=== PATIENT | male | born 1950 | race Caucasian/White ===

== ENCOUNTER 2016-12-10 13:31 | Inpatient (IN) | payer OTHER, MEDICARE ==
--- NOTE | 2016-12-10 13:47 | PDOC ---
History of Present Illness - General History Source: Patient Exam Limitations: No Limitations - History of Present Illness Initial Comments: 12/10/16 14:02 The patient is a 66 year old male, with a significant past medical history of high cholesterol, afib on blood thinners, and HTN , who presents to the emergency department with fecal retention for a couple of months. The patient notes having intermittent episodes of constipation. He reports having a full stool bowel movement every 4-5 days with his last full bowel movement about 4 days ago. He describes most of his bowel movements as watery. Also notes a recetn 20 pound weight loss. He also arrives with complaints of SOB. He denies any blood in his stool. He denies any recent fevers, chills, headache or dizziness. He denies any recent nausea, vomit, diarrhea. He denies any recent chest pain. He denies any recent dysuria, frequency, urgency or hematuria. He denies any belching and denies any previous gastroenterology work up. Notes having a recent negative stress test. Allergies: NKA Past surgical history: None reported. Social History: Nonsmoker. Denies EtOH use and recreational drug use. <Ethan Braden - Last Filed: 12/10/16 14:52> <Cristy Beasley - Last Filed: 12/10/16 16:23> - General Stated Complaint: FECAL/URINARY RETENTION Time Seen by Provider: 12/10/16 13:40 Past History <Ethan Braden - Last Filed: 12/10/16 14:52> <Cristy Beasley - Last Filed: 12/10/16 16:23> - Past Medical History Allergies/Adverse Reactions: Allergies Allergy/AdvReac Type Severity Reaction Status Date / Time No Known Allergies Allergy Unverified 12/10/16 14:16 Review of Systems - Review of Systems Able to Perform ROS?: Yes Comments:: 12/10/16 14:02 GENERAL/CONSTITUTIONAL: No fever or chills. No weakness. HEAD, EYES, EARS, NOSE AND THROAT: No change in vision. No ear pain or discharge. No sore throat. GASTROINTESTINAL: No nausea, vomiting, diarrhea. GENITOURINARY: +fecal retention. No dysuria, frequency, or change in urination. CARDIOVASCULAR: No chest pain +shortness of breath. RESPIRATORY: No cough, wheezing, or hemoptysis. MUSCULOSKELETAL: No joint or muscle swelling or pain. No neck or back pain. SKIN: No rash NEUROLOGIC: No headache, vertigo, loss of consciousness, or change in strength/ sensation. ENDOCRINE: No increased thirst. No abnormal weight change. HEMATOLOGIC/LYMPHATIC: No anemia, easy bleeding, or history of blood clots. ALLERGIC/IMMUNOLOGIC: No hives or skin allergy. <Ethan Braden - Last Filed: 12/10/16 14:52> *Physical Exam - Physical Exam Comments: 12/10/16 14:08 Constitutional: Awake, alert, oriented. No acute distress. Head: Normocephalic. Atraumatic Eyes: PERRL. EOMI. Conjunctivae are not pale. ENT: Mucous membranes are moist and intact. Posterior pharynx without exudates or erythema. Uvula midline. Neck: Supple. Full ROM. No lymphadenopathy. Cardiovascular: Regular rate. Regular rhythm. S1, S2 regular. Distal pulses are 2+ and symmetric. Pulmonary/Chest: No evidence of respiratory distress. Clear to auscultation bilaterally No wheezing, rales or rhonchi. Rectal: Vault empty with some stool that is liquid like. Abdominal: Soft and non-distended. There is diffuse tenderness. No rebound, guarding or rigidity. No organomegaly. No palpable masses. Good bowel sounds. Back: No CVA tenderness. Musculoskeletal: No edema. No cyanosis. No clubbing. Full range of motion in all extremities. No calf tenderness. Radial/pedal pulses are intact and 2+ bilaterally Skin: Skin is warm and dry. No petechiae. No purpura. Neurological: Alert and oriented to person, place, and time. Cranial nerves II -XII are grossly intact. Normal speech. Strength is grossly symmetric. No sensory deficits. Psychiatric: Good eye contact. Normal interaction, affect and behavior. <Ethan Braden - Last Filed: 12/10/16 14:52> Heart Score/ECG Review - ECG Intrepretation Comment:: 12/10/16 14:49 afib at 112, nl axis, nl interval, no acute st/t wave findings <Cristy Beasley - Last Filed: 12/10/16 16:23> ED Treatment Course - LABORATORY CBC & Chemistry Diagram: 12/10/16 14:40 12/10/16 14:39 <Ethan Braden - Last Filed: 12/10/16 14:52> - LABORATORY CBC & Chemistry Diagram: 12/10/16 14:40 12/10/16 14:39 <Cristy Beasley - Last Filed: 12/10/16 16:23> Medical Decision Making - Critical Care Time Total Critical Care Time (minutes): 30 Critical Care Statement: The care of this patient involved high complexity decision making to prevent further life threatening deterioration of the patient 's condition and/or to evaluate & treat vital organ system(s) failure or risk of failure. - Medical Decision Making 12/10/16 14:47 a/p: 66yo male with episodes of constipation and diarrhea x 2 month, now with SOB -labs -rectal vault negative for impaction -diffuse abd pain, will obtain ct abd/pelvis -ekg -cxr -trop -ivf hydration -concern for wt loss and intermittent episodes of constipation for colonic pathology -follows with Dr. Micheal Dukes - will place call to obtain further pmhx. 12/10/16 14:[address] Dukes, hx of chronic afib, recent nuclear stress. call back with results. 12/10/16 15:37 pt with INR of 13.[address] Dukes, accepts pt to admission, will transfuse FFP and vitamin K 12/10/16 15:51 pt states he only follows with DR. Chakraborty, no longer sees dr. abbott <Cristy Beasley - Last Filed: 12/10/16 16:23> *DC/Admit/Observation/Transfer - Attestations Scribe Attestion: 12/10/16 14:02 Documentation prepared by Ethan Braden, acting as medical cost consultant for Cristy Beasley DO. <Ethan Braden - Last Filed: 12/10/16 14:52> - Discharge Dispostion Admit: Yes - Attestations Physician Attestion: 12/10/16 15:41 I, Dr. Cristy Beasley DO, attest that this document has been prepared under my direction and personally reviewed by me in its entirety. I further attest, that it accurately reflects all work, treatment, procedures and medical decision -making performed by me. <Cristy Beasley - Last Filed: 12/10/16 16:23> Diagnosis at time of Disposition: GI bleed, Bleeding on Coumadin, ANDREY (acute kidney injury) - Discharge Dispostion Condition at time of disposition: Guarded - Referrals Referrals: Renan Abbott MD [Primary Care Provider] -
[2016-12-10 15:17] LABS: ACTIVATED PTT 97.9 SECONDS (26.9-34.4); PROTHROMBIN TIME (PATIENT) 149.6 SEC (9.98-11.88)
[2016-12-10 15:18] LABS: INR 13.24 (0.82-1.09)
[2016-12-10 15:21] LABS: BASOPHIL 0.1 % (0-2.0); MCH 32.7 pg (25.7-33.7); MEAN PLT VOLUME 8.7 fl (7.5-11.1); NEUTROPHILS 85.7 % (42.8-82.8); PLATELET COUNT 328 K/MM3 (134-434); WHITE BLOOD COUNT 14.1 K/mm3 (4.0-10.0)
[2016-12-10 15:34] LABS: ALBUMIN 3.5 g/dl (3.4-5.0); ANION GAP 16 (8-16); BILIRUBIN,TOTAL 0.9 mg/dL (0.2-1.0); CALCIUM 8.6 mg/dL (8.5-10.1); CO2 25 mmol/L (21-32); CPK 117 IU/L (39-308); CREATININE 1.7 mg/dL (0.7-1.3); GLUCOSE,RANDOM 163 mg/dL (74-106); SGOT/AST 19 U/L (15-37); SGPT/ALT 18 U/L (12-78); TOT PROT 7.1 g/dl (6.4-8.2)
[2016-12-10 15:36] LABS: ALK PHOS 43 U/L (45-117)
[2016-12-10] MEDS ORDERED: PHYTONADIONE 10 MG/1 ML AMP IM ONE (15:38)
[2016-12-10] MEDS ORDERED: PANTOPRAZOLE SODIUM 40 MG VIAL IVPUSH ONE (15:41)
[2016-12-10 15:43] LABS: TROPONIN I < 0.02 ng/ml (0.00-0.05)
[2016-12-10] MEDS ORDERED: SODIUM CHLORIDE 0.9% 1000 ML INFUS.BAG IV ONE ×2 (15:43)
[2016-12-10] MEDS ORDERED: PANTOPRAZOLE SODIUM 100 ML IVPB ONE (16:00)
[2016-12-10] MEDS ORDERED: PHYTONADIONE 10 MG/1 ML AMP ONE (16:00)
--- NOTE | 2016-12-10 17:18 | EKG ---
Test Reason : Blood Pressure : / mmHG Vent. Rate : 112 BPM Atrial Rate : 122 BPM P-R Int : 000 ms QRS Dur : 074 ms QT Int : 294 ms P-R-T Axes : 000 057 004 degrees QTc Int : 401 ms POOR DATA QUALITY, INTERPRETATION MAY BE ADVERSELY AFFECTED ATRIAL FIBRILLATION WITH RAPID VENTRICULAR RESPONSE ABNORMAL ECG NO PREVIOUS ECGS AVAILABLE Confirmed by NICK GOLD MD ([id number]) on 12/10/2016 5:17:42 PM Referred By: Confirmed By:NICK GOLD MD
--- NOTE | 2016-12-10 18:49 | PDOC ---
*Physical Exam - Vital Signs Last Vital Signs Temp Pulse Resp BP Pulse Ox 95.0 F L 118 H 20 114/76 100 12/10/16 14:14 12/10/16 14:14 12/10/16 14:14 12/10/16 14:14 12/10/16 14:14 <Shoaib Vance - Last Filed: 12/10/16 18:48> - Vital Signs Last Vital Signs Temp Pulse Resp BP Pulse Ox 95.0 F L 118 H 20 114/76 100 12/10/16 14:14 12/10/16 14:14 12/10/16 14:14 12/10/16 14:14 12/10/16 14:14 <Sosa Ruth - Last Filed: 12/10/16 18:59> ED Treatment Course - LABORATORY CBC & Chemistry Diagram: 12/10/16 14:40 12/10/16 14:39 - ADDITIONAL ORDERS Additional order review: Laboratory Results 12/10/16 12/10/16 12/10/16 14:40 14:39 14:39 PT with INR 149.60 H INR 13.24 H* PTT (Actin FS) 97.9 H Sodium 134 L Potassium 4.5 Chloride 93 L Carbon Dioxide 25 Anion Gap 16 BUN 31 H Creatinine 1.7 H Creat Clearance w eGFR 40.53 Random Glucose 163 H Calcium 8.6 Magnesium 2.0 Total Bilirubin 0.9 AST 19 ALT 18 Alkaline Phosphatase 43 L Creatine Kinase 117 Troponin I < 0.02 B-Natriuretic Peptide Cancelled 3244 H Total Protein 7.1 Albumin 3.5 Lipase 79 Stool Occult Blood 12/10/16 14:04 PT with INR INR PTT (Actin FS) Sodium Potassium Chloride Carbon Dioxide Anion Gap BUN Creatinine Creat Clearance w eGFR Random Glucose Calcium Magnesium Total Bilirubin AST ALT Alkaline Phosphatase Creatine Kinase Troponin I B-Natriuretic Peptide Total Protein Albumin Lipase Stool Occult Blood Positive 12/10/16 14:40 RBC 3.30 L MCV 96.0 MCHC 34.0 RDW 13.0 MPV 8.7 Neutrophils % 85.7 H Lymphocytes % 7.5 L Monocytes % 6.7 Eosinophils % 0.0 Basophils % 0.1 - Medications Given in the ED: ED Medications Discontinued Medications Generic Name Dose Route Start Last Admin Trade Name Freq PRN Reason Stop Dose Admin Pantoprazole Sodium 40 mg 12/10/16 15:41 12/10/16 16:09 Protonix Iv IVPUSH 12/10/16 15:42 40 mg ONCE ONE Administration Phytonadione 5 mg 12/10/16 15:38 12/10/16 16:00 Aqua Mephyton Injection - IM 12/10/16 15:39 5 mg ONCE ONE Administration Sodium Chloride 1,000 ml 12/10/16 15:43 12/10/16 16:09 Normal Saline - IV 12/10/16 15:44 1,000 ml ONCE ONE Administration Sodium Chloride 1,000 ml 12/10/16 15:43 12/10/16 18:16 Normal Saline - IV 12/10/16 15:44 1,000 ml ONCE ONE Administration <GabrinShoaib - Last Filed: 12/10/16 18:48> - LABORATORY CBC & Chemistry Diagram: 12/10/16 14:40 12/10/16 14:39 - ADDITIONAL ORDERS Additional order review: Laboratory Results 12/10/16 12/10/16 12/10/16 14:40 14:39 14:39 PT with INR 149.60 H INR 13.24 H* PTT (Actin FS) 97.9 H Sodium 134 L Potassium 4.5 Chloride 93 L Carbon Dioxide 25 Anion Gap 16 BUN 31 H Creatinine 1.7 H Creat Clearance w eGFR 40.53 Random Glucose 163 H Calcium 8.6 Magnesium 2.0 Total Bilirubin 0.9 AST 19 ALT 18 Alkaline Phosphatase 43 L Creatine Kinase 117 Troponin I < 0.02 B-Natriuretic Peptide Cancelled 3244 H Total Protein 7.1 Albumin 3.5 Lipase 79 Stool Occult Blood 12/10/16 14:04 PT with INR INR PTT (Actin FS) Sodium Potassium Chloride Carbon Dioxide Anion Gap BUN Creatinine Creat Clearance w eGFR Random Glucose Calcium Magnesium Total Bilirubin AST ALT Alkaline Phosphatase Creatine Kinase Troponin I B-Natriuretic Peptide Total Protein Albumin Lipase Stool Occult Blood Positive 12/10/16 14:40 RBC 3.30 L MCV 96.0 MCHC 34.0 RDW 13.0 MPV 8.7 Neutrophils % 85.7 H Lymphocytes % 7.5 L Monocytes % 6.7 Eosinophils % 0.0 Basophils % 0.1 - Medications Given in the ED: ED Medications Discontinued Medications Generic Name Dose Route Start Last Admin Trade Name Freq PRN Reason Stop Dose Admin Pantoprazole Sodium 40 mg 12/10/16 15:41 12/10/16 16:09 Protonix Iv IVPUSH 12/10/16 15:42 40 mg ONCE ONE Administration Phytonadione 5 mg 12/10/16 15:38 12/10/16 16:00 Aqua Mephyton Injection - IM 12/10/16 15:39 5 mg ONCE ONE Administration Sodium Chloride 1,000 ml 12/10/16 15:43 12/10/16 16:09 Normal Saline - IV 12/10/16 15:44 1,000 ml ONCE ONE Administration Sodium Chloride 1,000 ml 12/10/16 15:43 12/10/16 18:16 Normal Saline - IV 12/10/16 15:44 1,000 ml ONCE ONE Administration <Sosa Ruth - Last Filed: 12/10/16 18:59> Medical Decision Making - Medical Decision Making 12/10/16 18:59 Mylene will see the patient in the next hour in the ED. Aware of malignancy and complex fluid in the Abdominal CT. Admission changed to [facility]. <Sosa Ruth - Last Filed: 12/10/16 18:59> *DC/Admit/Observation/Transfer - Attestations Physician Attestion: 12/10/16 18:49 I, Dr. Shoaib Vance, attest that this document has been prepared under my direction and personally reviewed by me in its entirety. I further attest, that it accurately reflects all work, treatment, procedures and medical decision -making performed by me. <Shoaib Vance - Last Filed: 12/10/16 18:48> <Sosa Ruth - Last Filed: 12/10/16 18:59> Diagnosis at time of Disposition: GI bleed, Bleeding on Coumadin, ANDREY (acute kidney injury) - Discharge Dispostion Condition at time of disposition: Guarded
--- NOTE | 2016-12-10 19:47 | CONSULT ---
Consult - text type - Consultation Consultation Note: H&P 66 year old male, with a significant past medical history of high cholesterol, afib on A/C, and HTN , who presents to the emergency department with fecal retention for a couple of months. The patient notes having intermittent episodes of constipation. He reports having a full stool bowel movement every 4- 5 days with his last full bowel movement about 4 days ago. He describes most of his bowel movements as watery. Also notes a 20 pound weight loss. Allergies: NKA Past surgical history: None reported. Social History: Nonsmoker. Denies EtOH use and recreational drug use. PMH afib,HTN PE: vitals stable normal cardio-pulmonary exam abdomen soft no leg edema Impression: chronic afib; stablefrom cardiac standpoint; INR 13, no bleed apparently; received FFP and Vit K abdominal symptoms cecum and recto-sigmoid thickening, abdomino-pelvic fluid; workup to be Rec: GI consult
[2016-12-11 10:05] LABS: BASOPHIL 0.3 % (0-2.0); EOSINOPHIL 0.8 % (0-4.5); MCH 33.6 pg (25.7-33.7); MCHC 35.4 g/dl (32.0-35.9); MEAN CELL VOLUME 95.1 fl (80-96); MEAN PLT VOLUME 7.9 fl (7.5-11.1); NEUTROPHILS 76.3 % (42.8-82.8); PLATELET COUNT 245 K/MM3 (134-434); RDW 12.8 % (11.9-15.9); WHITE BLOOD COUNT 6.5 K/mm3 (4.0-10.0)
[2016-12-11 11:16] VITALS: BMI 22.4
[2016-12-11] MEDS ORDERED: INSULIN (NOVOLOG) ASPART 100 UNITS/ML 10ML VIAL ONE (11:53)
[2016-12-11] MEDS ORDERED: PNEUMOC 13-VAL CONJ-DIP CRM/PF 0.5 ML DISP.SYRIN IM ONE (17:00)
[2016-12-11 17:16] LABS: INR 2.97 (0.82-1.09); PROTHROMBIN TIME (PATIENT) 33.6 SEC (9.98-11.88)
[2016-12-11 17:35] LABS: ANION GAP 6 (8-16); CALCIUM 8.4 mg/dL (8.5-10.1); CO2 32 mmol/L (21-32); CREATININE 1.2 mg/dL (0.7-1.3); GLUCOSE,RANDOM 130 mg/dL (74-106); MAGNESIUM 2.2 mg/dL (1.8-2.4)
[2016-12-11] MEDS ORDERED: dilTIAZem HCL 50 MG/10 ML - 10 ML VIAL ONE (18:07)
--- NOTE | 2016-12-11 18:14 | CONSULT ---
Consult - text type - Consultation Consultation Note: Cardiology mild abdominal discomfort, no other symptoms PE: HR 140 BP 110/80 tachycardia lungs clear abdomen soft no leg edema Impression: afib RVR INR 13, being reversed abdominal fluid and intestinal thickening: ? hemoperitoneum K 3.2 H/H 8/ dilutional and chronic Rec: GI and surgery consult cardizdem IV and PO to control HR replace K
[2016-12-11] MEDS ORDERED: dilTIAZem HCL 50 MG/10 ML - 10 ML VIAL IVPUSH ONE (18:16)
[2016-12-11] MEDS: dilTIAZem HCL 30 MG TABLET (FP) PO SCH (19:03)
[2016-12-11] MEDS: POTASSIUM CHLORIDE TABS 20 MEQ TABLET.ER (FP) PO SCH (19:03)
--- NOTE | 2016-12-11 19:03 | CON.GI ---
Consult Consult Specialty:: GI: Dr. Farias for Dr. Morrison Referred by:: Dr. Jacobs Reason for Consultation:: Diarrhea, abnormal CT scan - History of Present Illness Chief Complaint: I had diarrhea and pain in my belly for 2-3 months History of Present Illness: 66M admitted through [facility] for evaluation of persistent diarrhea. Mr. Gonzales explains to me that he has been having 2-3 watery BM's per day over the last 2- 3 months. He denies associated fevers/chills/rectal bleeding and has lost 15- 20 pounds over the last month. His appetite has also been diminished of late. He denies nightsweats and does recall the diarrhea waking him up at times. He tried taking Imodium and peptobismol without relief of his symptoms and did not seek medical attention because "he had a similar episode 6-7 years ago that went away with OTC stuff". Since things did not seem to improve, he sought medical attention now. He was admitted last night. Called tonight for consult. In ER last night CT scan of the abdomen revealed thickening of the small bowel (ileum) associated with complex fluid that was concerning for possible hemoperitoneum and surgery was called by Mr. Gonzales' nurse. His INR was 13 on admission, Hgb was 10.5 last night (currently 8.5) There has been no melena. He may have had a colonoscopy remotely but is not sure. There is no family history of lymphoma / [id number] cancer. 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 - Alcohol/Substance Use Hx Alcohol Use: Yes (used to drink a lot but cut down to 1-2 cans of beer x2/ month.) History of Substance Use: reports: None - Smoking History Smoking history: Current every day smoker Have you smoked in the past 12 months: Yes Aproximately how many cigarettes per day: 20 - Social History Usual Living Arrangement: Alone ADL: Independent Occupation: Semi-retired Place of : [employer] [facility] History of Recent Travel: No Home Medications - Allergies Allergies/Adverse Reactions: Allergies Allergy/AdvReac Type Severity Reaction Status Date / Time No Known Allergies Allergy Unverified 12/10/16 14:16 - Home Medications Home Medications: Ambulatory Orders Atenolol [Tenormin -] 100 mg PO DAILY 12/11/16 Chlorthalidone [Hygroton -] 25 mg PO DAILY 12/11/16 Diltiazem [Cardizem -] 30 mg PO BID 12/11/16 Fenofibrate 60 mg PO DAILY 12/11/16 Simvastatin 20 mg PO DAILY 12/11/16 Warfarin Sodium [Coumadin] 5 mg PO DAILY 12/11/16 Family Disease History - Family Disease History Family Disease History: Other: Father (alive: 89: healthy), Mother ( 75: pancreatic cancer), Brother (2, healthy), Sister (1, healthy) Other Family History: No children Review of Systems - Review of Systems Constitutional: reports: Loss of Appetite, Unintentional Wgt. Loss, Weakness. denies: Chills Cardiovascular: reports: Palpitations. denies: Chest Pain, Shortness of Breath Respiratory: denies: Cough Gastrointestinal: reports: Abdominal Pain, Diarrhea. denies: Bloating, Constipation, Melena, Rectal Bleeding, Vomiting, Vomiting Blood Integumentary: denies: Bruising Physical Exam-GI Vital Signs: Vital Signs Temperature 98.1 F 12/11/16 15:03 Pulse Rate 112 H 12/11/16 16:30 Respiratory Rate 22 12/11/16 16:30 Blood Pressure 92/57 12/11/16 16:30 O2 Sat by Pulse Oximetry (%) 100 12/11/16 10:44 Constitutional: Yes: Calm Eyes: No: Sclera Icterus Cardiovascular: Yes: Tachycardia, Pulse Irregular Respiratory: Yes: CTA Bilaterally Gastrointestinal Inspection: No: Distention, Scars ...Auscultate: Yes: Normoactive Bowel Sounds ...Palpate: Yes: Soft, Tenderness, Tenderness, Rebound (mild rebound upon palpation of the mid abdomen). No: Hepatomegaly ...Percussion: No: Tympanitic ...Rectal Exam: Yes: Other (No external lesions, no masses, light brown liquid stool, guaiac positive) Edema: No Neurological: Yes: Alert, Oriented Labs: CBC, BMP 12/11/16 09:30 12/11/16 16:00 INR, PTT INR 2.97 (0.82-1.09) H D 12/11/16 16:00 Imaging - Results Cat Scan: Report Reviewed, Image Reviewed Problem List - Problems (1) Diarrhea Assessment/Plan: With CT scan findings and chronicity of symptoms along with weight loss, possibilities would include small bowel crohn's disease, malignancy of the intestinal tract such as lymphoma. It would be strange for infectious enteritis to linger this long and this would be an atypical presentation for small bowel ischemia. The free fluid in the peritoneum was described as complex and raising concern for component of hemoperitoneum. ? if smal;l bowel pathology spontanrously bled Dr. Gambino is evaluating Mr. Gonzales currently. Plan for now: Stool for O&P, culture, c. diff Will need contrast imaging study / CT enterography when renal function permits Clear liquid diet for now Reverse coagulopathy Monitor H/H Surgical follow-up Consider ID evaluation When acute issues are resolved and when feasible, patient will need colonoscopy for further evaluation / possible push enterpscopy Dr. Morrison returns Thursday 12/14 Code(s): R19.7 - DIARRHEA, UNSPECIFIED
--- NOTE | 2016-12-11 19:42 | PN ---
Progress Note (short form) - Note Progress Note: Reviewed CT scan along with Dr. Gambino. There appears to be mass effect at the area of the splenic flexure / descending colon with ? extrinsic compression. there also appears to be blood tracking along spleen and liver. ? if stromal tumor that bled in setting of supratherapeutic INR Patient may need diagnostic laparoscopy Will continue to monitor Contrast imaging when renal function permits Problem List - Problems (1) Diarrhea Code(s): R19.7 - DIARRHEA, UNSPECIFIED
--- NOTE | 2016-12-11 19:44 | PN ---
Progress Note, Physician History of Present Illness: 66 yr old male presents with several month history of lower abdominal pain, diarrhea and 15-20 lb weight loss He reports significant discomfort waering a belt. Denies any nausea or vomiting. He has a History of HTn, Hypercholesterolemia and Afib for which he is anticoagulated on Coumadin. - Current Medication List Current Medications: Active Medications Diltiazem HCl (Cardizem -) 30 mg PO TID [facility] Last Admin: 12/11/16 19:03 Dose: 30 mg Potassium Chloride (K-Dur -) 20 meq PO BID [facility] Last Admin: 12/11/16 19:03 Dose: 20 meq - Objective Vital Signs: Vital Signs Temperature 98.1 F 12/11/16 15:03 Pulse Rate 112 H 12/11/16 18:00 Respiratory Rate 22 12/11/16 18:00 Blood Pressure 109/72 12/11/16 18:00 O2 Sat by Pulse Oximetry (%) 100 12/11/16 10:44 Labs: CBC, BMP 12/11/16 09:30 12/11/16 16:00 INR, PTT INR 2.97 (0.82-1.09) H D 12/11/16 16:00 - ....Imaging Cat Scan: Report Reviewed, Image Reviewed Problem List - Problems (1) Bleeding on Coumadin Code(s): R58 - HEMORRHAGE, NOT ELSEWHERE CLASSIFIED T45.515A - ADVERSE EFFECT OF ANTICOAGULANTS, INITIAL ENCOUNTER (2) Diarrhea Code(s): R19.7 - DIARRHEA, UNSPECIFIED Assessment/Plan 66 yr old male with Abdominal pain, diarrhea and [address] Shows thickened loops of jejunum , terminal ileum and Spleenic flexure. There is suggestion of fluid aronud the spleen and liver. No acute need for surgical intervention at this time, however, diagnostic laparoscopy may be helpful once other diagnostic modalities are exhausted. Repeat Ct scan with Iv and oral contrast once creatine normalizes
[2016-12-11 20:45] LABS: MCH 33.2 pg (25.7-33.7); MCHC 34.8 g/dl (32.0-35.9); MEAN CELL VOLUME 95.6 fl (80-96); MEAN PLT VOLUME 8.1 fl (7.5-11.1); PLATELET COUNT 244 K/MM3 (134-434); RDW 12.7 % (11.9-15.9); WHITE BLOOD COUNT 7.3 K/mm3 (4.0-10.0)
[2016-12-12] MEDS ORDERED: PT OWN MED DRAWER 7, Y5N ONE (01:17)
[2016-12-12] MEDS: dilTIAZem HCL 30 MG TABLET (FP) PO SCH ×3 (06:00→22:10)
[2016-12-12] MEDS ORDERED: DIGOXIN 0.25 MG TABLET (FP) PO ONE (06:15)
[2016-12-12 06:19] LABS: BASOPHIL 0.6 % (0-2.0); EOSINOPHIL 1.8 % (0-4.5); MCH 33.3 pg (25.7-33.7); MCHC 34.7 g/dl (32.0-35.9); MEAN CELL VOLUME 95.9 fl (80-96); MEAN PLT VOLUME 8.5 fl (7.5-11.1); PLATELET COUNT 240 K/MM3 (134-434); RDW 12.5 % (11.9-15.9); WHITE BLOOD COUNT 5.7 K/mm3 (4.0-10.0)
[2016-12-12 06:32] LABS: ANION GAP 7 (8-16); CALCIUM 8.3 mg/dL (8.5-10.1); CO2 31 mmol/L (21-32); CREATININE 1.1 mg/dL (0.7-1.3); GLUCOSE,RANDOM 95 mg/dL (74-106); MAGNESIUM 1.9 mg/dL (1.8-2.4); PHOSPHOROUS 2.4 mg/dL (2.5-4.9)
[2016-12-12] MEDS ORDERED: dilTIAZem HCL 30 MG TABLET (FP) PO ONE (09:00)
[2016-12-12] MEDS: POTASSIUM CHLORIDE TABS 20 MEQ TABLET.ER (FP) PO SCH ×2 (09:28→22:10)
--- NOTE | 2016-12-12 09:35 | EKG ---
Test Reason : Blood Pressure : / mmHG Vent. Rate : 100 BPM Atrial Rate : 288 BPM P-R Int : 000 ms QRS Dur : 076 ms QT Int : 356 ms P-R-T Axes : 000 069 030 degrees QTc Int : 459 ms ATRIAL FIBRILLATION NONSPECIFIC T WAVE ABNORMALITY ABNORMAL ECG WHEN COMPARED WITH ECG OF 10-DEC-2016 14:47, NONSPECIFIC T WAVE ABNORMALITY NOW EVIDENT IN LATERAL LEADS Confirmed by HILARIO PRINCE, GINA ([id number]) on 12/12/2016 9:34:34 AM Referred By: Confirmed By:GINA RICH MD
[2016-12-12] MEDS: FENOFIBRIC ACID 45 MG CAP PO SCH (10:51)
[2016-12-12] MEDS: CHLORTHALIDONE 25 MG TABLET PO SCH (10:51)
--- NOTE | 2016-12-12 12:33 | CONSULT ---
Consult - text type - Consultation Consultation Note: Cardiology mild abdominal discomfort, no other symptoms PE: HR 100-110 BP 110/80 tachycardia lungs clear abdomen soft no leg edema Impression: afib RVR; almost controlled INR 13 to 2.6 abdominal fluid and intestinal thickening: ? hemoperitoneum K 3.2 to 3.4 H/H 8/ dilutional and chronic renal function almost normal GI and surgery: There appears to be mass effect at the area of the splenic flexure / descending colon with ? extrinsic compression. there also appears to be blood tracking along spleen and liver. ? if stromal tumor that bled in setting of supratherapeutic INR Patient may need diagnostic laparoscopy Patient is cleared from medical and cardiac standpoint to undergo laparaoscopy; INR 2.6 can be normalized before surgery Rec: diagnostic imaging if needed, with creatinine almost normal
[2016-12-12] MEDS: ATENOLOL 50 MG TABLET (FP) PO SCH (12:43)
--- NOTE | 2016-12-12 14:34 | PN ---
Progress Note, Physician History of Present Illness: reports mild abdominal pain, tolerating clears - Current Medication List Current Medications: Active Medications Atenolol (Tenormin -) 50 mg PO DAILY [facility] Last Admin: 12/12/16 12:43 Dose: 50 mg Atorvastatin Calcium (Lipitor -) 10 mg PO HS [facility] Chlorthalidone (Hygroton -) 25 mg PO DAILY [facility] Last Admin: 12/12/16 10:51 Dose: 25 mg Digoxin (Lanoxin -) 0.25 mg PO DAILY [facility] Diltiazem HCl (Cardizem -) 30 mg PO TID [facility] Last Admin: 12/12/16 13:25 Dose: 30 mg Fenofibric Acid (Trilipix -) 45 mg PO DAILY [facility] Last Admin: 12/12/16 10:51 Dose: 45 mg Potassium Chloride (K-Dur -) 20 meq PO BID [facility] Last Admin: 12/12/16 09:28 Dose: 20 meq - Objective Vital Signs: Vital Signs Temperature 98.2 F 12/12/16 07:25 Pulse Rate 88 12/12/16 12:18 Respiratory Rate 18 12/12/16 12:18 Blood Pressure 114/68 12/12/16 12:18 O2 Sat by Pulse Oximetry (%) 98 12/12/16 07:46 Labs: CBC, BMP 12/12/16 05:05 12/12/16 05:05 INR, PTT INR 2.97 (0.82-1.09) H D 12/11/16 16:00 Problem List - Problems (1) Bleeding on Coumadin Code(s): R58 - HEMORRHAGE, NOT ELSEWHERE CLASSIFIED T45.515A - ADVERSE EFFECT OF ANTICOAGULANTS, INITIAL ENCOUNTER (2) Diarrhea Code(s): R19.7 - DIARRHEA, UNSPECIFIED Assessment/Plan HCT stable Cr HAS NORMALIZED, INR has improved Will order repeat Ct scan with IV and PO contrast
[2016-12-12] MEDS: DIGOXIN 0.25 MG TABLET (FP) PO SCH (17:22)
--- NOTE | 2016-12-12 18:21 | PN ---
GI Progress Note Subjective: No acute events States that diarrhea is improved: 1 formed BM today and dark BM noted overnight - Objective Vital Signs: Vital Signs Temperature 98 F 12/12/16 16:13 Pulse Rate 78 12/12/16 17:22 Respiratory Rate 18 12/12/16 16:13 Blood Pressure 105/67 12/12/16 16:13 O2 Sat by Pulse Oximetry (%) 98 12/12/16 07:46 Constitutional: Calm Eyes: No: Sclera Icterus Cardiovascular: Yes: Regular Rate and Rhythm, Pulse Irregular Respiratory: Yes: CTA Bilaterally Gastrointestinal Inspection: No: Distention ...Auscultate: Yes: Normoactive Bowel Sounds ...Palpate: No: Tenderness Edema: No Neurological: Yes: Alert, Oriented Labs: CBC, BMP 12/12/16 05:05 12/12/16 05:05 INR, PTT INR 2.97 (0.82-1.09) H D 12/11/16 16:00 - ....Imaging Cat Scan: Report Reviewed (persistent bowel wall thickening mid/left abdomen), Image Reviewed Problem List - Problems (1) Diarrhea Assessment/Plan: Improved Still with thickening of the small bowel noted on CT scan. Hemoperitoneum not described on this CT scan read Given chronicity of symptoms and weight loss as well as with heme positive stools (in setting of supratherapeutic INR), still concern for possible GI malignancy in differential. Seems to be tolerating clears Discussed with Dr. Gambino. No plan for the OR at this time. Will need coagulopathy corrected and electrolytes repleted. Asked nurse to let PMD be aware of this Plan for possible enteroscopy and colonoscopy Continue clears for now Code(s): R19.7 - DIARRHEA, UNSPECIFIED
[2016-12-12] MEDS: PANTOPRAZOLE 40 MG TABLET (FP) PO SCH (22:11)
[2016-12-12] MEDS: ATORVASTATIN CA 10 MG TABLET (FP) PO SCH (22:11)
[2016-12-13] MEDS: dilTIAZem HCL 30 MG TABLET (FP) PO SCH ×3 (06:35→22:21)
[2016-12-13] MEDS ORDERED: PT OWN MED DRAWER 7, Y5N ONE (09:01)
[2016-12-13] MEDS: FENOFIBRIC ACID 45 MG CAP PO SCH (09:21)
[2016-12-13] MEDS: ATENOLOL 50 MG TABLET (FP) PO SCH (09:21)
[2016-12-13] MEDS: PANTOPRAZOLE 40 MG TABLET (FP) PO SCH (09:21)
[2016-12-13] MEDS: CHLORTHALIDONE 25 MG TABLET PO SCH (09:21)
[2016-12-13] MEDS: POTASSIUM CHLORIDE TABS 20 MEQ TABLET.ER (FP) PO SCH ×2 (09:21→22:21)
[2016-12-13] MEDS: DIGOXIN 0.25 MG TABLET (FP) PO SCH (09:22)
--- NOTE | 2016-12-13 10:00 | CONSULT ---
Consult - text type - Consultation Consultation Note: Cardiology symptoms have subsided PE: vitals stable HR 85 /minute cardiac exam normal lungs clear abdomen soft no leg edema Impression: afib RVR; controlled INR 13 to 2.6, check today abdominal fluid resolved; intestinal thickening present, no laparoscopy, planned colonoscopy/enteroscopy H/H 10/07 renal function almost normal Patient is cleared from medical and cardiac standpoint to undergo colonoscopy/ enteroscopy Rec: CBC, Chem, INR today Discontinue telemetry
[2016-12-13 11:15] LABS: BASOPHIL 0.5 % (0-2.0); EOSINOPHIL 1.5 % (0-4.5); MCH 33.5 pg (25.7-33.7); MCHC 34.9 g/dl (32.0-35.9); MEAN CELL VOLUME 96.1 fl (80-96); MEAN PLT VOLUME 7.7 fl (7.5-11.1); NEUTROPHILS 70.4 % (42.8-82.8); PLATELET COUNT 304 K/MM3 (134-434); RDW 12.7 % (11.9-15.9)
[2016-12-13 11:22] LABS: INR 1.4 (0.82-1.09); PROTHROMBIN TIME (PATIENT) 15.8 SEC (9.98-11.88)
[2016-12-13 11:36] LABS: ALBUMIN 3.2 g/dl (3.4-5.0); ALK PHOS 41 U/L (45-117); ANION GAP 5 (8-16); BILIRUBIN,TOTAL 0.5 mg/dL (0.2-1.0); CALCIUM 8.7 mg/dL (8.5-10.1); CO2 32 mmol/L (21-32); CREATININE 1.1 mg/dL (0.7-1.3); GLUCOSE,RANDOM 109 mg/dL (74-106); SGOT/AST 17 U/L (15-37); SGPT/ALT 17 U/L (12-78); TOT PROT 6.6 g/dl (6.4-8.2)
--- NOTE | 2016-12-13 15:37 | PN ---
GI Progress Note Subjective: States having a formed BM earlier today then a loose BM later. No abdominal pain - Objective Vital Signs: Vital Signs Temperature 97.5 F L 12/13/16 14:00 Pulse Rate 77 12/13/16 14:00 Respiratory Rate 18 12/13/16 14:00 Blood Pressure 136/74 12/13/16 14:00 O2 Sat by Pulse Oximetry (%) 98 12/13/16 09:00 Constitutional: Calm Eyes: No: Sclera Icterus Cardiovascular: Yes: Pulse Irregular Respiratory: Yes: CTA Bilaterally Gastrointestinal Inspection: No: Distention ...Auscultate: No: Normoactive Bowel Sounds ...Percussion: No: Tympanitic Edema: No Neurological: Yes: Alert, Oriented Labs: CBC, BMP 12/13/16 11:04 12/13/16 11:04 INR, PTT INR 1.40 (0.82-1.09) H D 12/13/16 11:06 Problem List - Problems (1) Diarrhea Assessment/Plan: Improved somewhat, now more intermittent Plan for enteroscopy tomorrow followed by colonoscopy given CT scan findings, weight loss and guaiac positive stool Code(s): R19.7 - DIARRHEA, UNSPECIFIED
--- NOTE | 2016-12-13 22:09 | PN ---
Progress Note (short form) - Note Progress Note: Attending Surgeon Coverage for Hector Pérez MD Seen earlier; no c/o Had brown formed BM when seen; no c/o. VSS AF abdomen-soft; non tender h/h/ stable IMP:improved PLAN: as per GI; will continue to f/u. Willy Packer MD FACS
[2016-12-13] MEDS: ATORVASTATIN CA 10 MG TABLET (FP) PO SCH (22:21)
[2016-12-14] MEDS: dilTIAZem HCL 30 MG TABLET (FP) PO SCH ×3 (06:31→21:44)
[2016-12-14 08:06] LABS: BASOPHIL 0.6 % (0-2.0); EOSINOPHIL 3.1 % (0-4.5); MCH 33.6 pg (25.7-33.7); MCHC 35.1 g/dl (32.0-35.9); MEAN CELL VOLUME 95.7 fl (80-96); MEAN PLT VOLUME 7.7 fl (7.5-11.1); NEUTROPHILS 72.3 % (42.8-82.8); PLATELET COUNT 368 K/MM3 (134-434); RDW 12.9 % (11.9-15.9); WHITE BLOOD COUNT 5.5 K/mm3 (4.0-10.0)
[2016-12-14 08:25] LABS: INR 1.26 (0.82-1.09); PROTHROMBIN TIME (PATIENT) 14.2 SEC (9.98-11.88)
[2016-12-14 08:27] LABS: ALBUMIN 3.6 g/dl (3.4-5.0); ANION GAP 9 (8-16); BILIRUBIN,TOTAL 0.8 mg/dL (0.2-1.0); CALCIUM 9.4 mg/dL (8.5-10.1); CO2 28 mmol/L (21-32); GLUCOSE,RANDOM 99 mg/dL (74-106); SGOT/AST 19 U/L (15-37); SGPT/ALT 18 U/L (12-78)
[2016-12-14 08:28] LABS: ACTIVATED PTT 33.3 SECONDS (26.9-34.4); ALK PHOS 44 U/L (45-117); TOT PROT 7.1 g/dl (6.4-8.2)
[2016-12-14] MEDS ORDERED: PT OWN MED DRAWER 7, Y5N ONE (09:19)
[2016-12-14] MEDS: POTASSIUM CHLORIDE TABS 20 MEQ TABLET.ER (FP) PO SCH ×2 (09:33→21:44)
[2016-12-14] MEDS: PANTOPRAZOLE 40 MG TABLET (FP) PO SCH (09:33)
[2016-12-14] MEDS: DIGOXIN 0.25 MG TABLET (FP) PO SCH (09:33)
[2016-12-14] MEDS: ATENOLOL 50 MG TABLET (FP) PO SCH (11:00)
[2016-12-14] MEDS ORDERED: PROPOFOL 20 ML ONE ×2 (11:27)
[2016-12-14] MEDS: CHLORTHALIDONE 25 MG TABLET PO SCH (11:30)
[2016-12-14] MEDS: FENOFIBRIC ACID 45 MG CAP PO SCH (11:30)
--- NOTE | 2016-12-14 12:41 | PN ---
Progress Note (short form) - Note Progress Note: GI Procedure Note: Please see scanned EGD and enteroscopy report. The full length of the enteroscope was passed ( 220cm). No bleeding lesions, ulcers, Crohn's Disease or tumors were found. Given that the CT also suggested terminal ileal abnormalities a colonoscopy is the next step. Will prep for Wednesday. Do not resume anticoagulants.
--- NOTE | 2016-12-14 17:12 | CONSULT ---
Consult - text type - Consultation Consultation Note: Cardiology symptoms have subsided PE: vitals stable HR 85 /minute cardiac exam normal lungs clear abdomen soft no leg edema Impression: afib RVR; controlled INR 13 to 2.6, check today abdominal fluid resolved; intestinal thickening present, no laparoscopy, planned colonoscopy/enteroscopy H/H 10/07 renal function almost normal Patient is cleared from medical and cardiac standpoint to undergo colonoscopy/ enteroscopy EGD today, report pending Blood tests unremarkable, INR normal Rec: continue GI work-up no A/C at this time
[2016-12-14] MEDS: ATORVASTATIN CA 10 MG TABLET (FP) PO SCH (21:44)
[2016-12-15] MEDS: dilTIAZem HCL 30 MG TABLET (FP) PO SCH ×3 (06:00→21:42)
[2016-12-15 06:19] LABS: BASOPHIL 0.6 % (0-2.0); EOSINOPHIL 3.8 % (0-4.5); MCH 33.4 pg (25.7-33.7); MCHC 34.8 g/dl (32.0-35.9); MEAN CELL VOLUME 96.1 fl (80-96); MEAN PLT VOLUME 7.9 fl (7.5-11.1); NEUTROPHILS 67.2 % (42.8-82.8); PLATELET COUNT 337 K/MM3 (134-434); RDW 12.7 % (11.9-15.9); WHITE BLOOD COUNT 6.5 K/mm3 (4.0-10.0)
[2016-12-15 06:44] LABS: ANION GAP 10 (8-16); CALCIUM 9.1 mg/dL (8.5-10.1); CO2 29 mmol/L (21-32); CREATININE 1.1 mg/dL (0.7-1.3); GLUCOSE,RANDOM 103 mg/dL (74-106)
[2016-12-15] MEDS ORDERED: PEG3350/SOD SULF,BICARB,CL/KCL 4,000 ML SOLN.RECON PO ONE (09:00)
[2016-12-15] MEDS: CHLORTHALIDONE 25 MG TABLET PO SCH (09:37)
[2016-12-15] MEDS: POTASSIUM CHLORIDE TABS 20 MEQ TABLET.ER (FP) PO SCH ×2 (09:37→21:42)
[2016-12-15] MEDS: DIGOXIN 0.25 MG TABLET (FP) PO SCH (09:38)
[2016-12-15] MEDS: ATENOLOL 50 MG TABLET (FP) PO SCH (09:39)
[2016-12-15] MEDS ORDERED: PT OWN MED DRAWER 7, Y5N ONE (09:42)
[2016-12-15] MEDS: FENOFIBRIC ACID 45 MG CAP PO SCH (09:42)
[2016-12-15] MEDS: PANTOPRAZOLE 40 MG TABLET (FP) PO SCH (10:00)
--- NOTE | 2016-12-15 12:01 | PATH ---
Surgical Pathology Report Patient Name: NICOLASA SILVERIO [facility]. Rec. #: [id number] /Age/Gender: 1950 (Age: 66) / M Account: [id number] Location: EMERGENCY ROOM Taken: 12/14/2016 Received: 12/14/2016 Reported: 12/15/2016 Physicians: Tomasz Morrison M.D. Specimen(s) Received A: BX DUODENUM B: BX ANTRUM Clinical History Anemia, diarrhea, weight loss Mild gastritis, hiatal hernia Final Diagnosis A. DUODENUM, SECOND PORTION AND BULB, BIOPSY: DUODENAL MUCOSA WITH NO PATHOLOGIC CHANGES. NO HISTOLOGIC EVIDENCE OF GLUTEN SENSITIVE ENTEROPATHY (CELIAC SPRUE) IDENTIFIED. B. STOMACH, ANTRUM, BIOPSY: GASTRIC ANTRAL AND FUNDIC MUCOSA WITH NO SIGNIFICANT PATHOLOGIC CHANGES. IMMUNOSTAIN FOR H. PYLORI IS NEGATIVE. Electronically Signed Aniket Quintero M.D. Gross Description A. Received in formalin, labeled "biopsy duodenum second portion and bulb" are 3 buenrostro, irregular portions of soft tissue averaging 0.3 cm. in greatest dimension. The specimens are submitted in toto in one cassette. B. Received in formalin, labeled "biopsy antrum" are 4 buenrostro, irregular portions of soft tissue ranging from 0.2-0.4 cm. in greatest dimension. The specimens are submitted in toto in one cassette. 12/14/2016 saudi12/14/2016
--- NOTE | 2016-12-15 14:07 | CONSULT ---
Consult - text type - Consultation Consultation Note: Cardiology symptoms have subsided PE: vitals stable HR 85 /minute cardiac exam normal lungs clear abdomen soft no leg edema Impression: afib RVR; controlled abdominal fluid resolved; intestinal thickening present, no laparoscopy, planned colonoscopy/enteroscopy H/H 11/11 INR 1.26 renal function almost normal Patient is cleared from medical and cardiac standpoint to undergo colonoscopy/ enteroscopy EGD mild gastritis, hiatal hernia Blood tests unremarkable, INR normal Rec: continue GI work-up no A/C at this time Colonoscopy to be
--- NOTE | 2016-12-15 16:14 | PN ---
GI Progress Note Subjective: GI NOte: Tolerating bowel prep without abdominal pain or bleeding. - Objective Vital Signs: Vital Signs Temperature 97.8 F 12/15/16 06:00 Pulse Rate 75 12/15/16 09:38 Respiratory Rate 16 12/15/16 09:00 Blood Pressure 94/57 12/15/16 06:00 O2 Sat by Pulse Oximetry (%) 98 12/15/16 09:00 Laboratory Tests 12/15/16 12/15/16 12/15/16 05:00 05:00 05:00 WBC 6.5 Hgb 9.5 L Hct 27.2 L Plt Count 337 C-Reactive Protein 2.0 H p-ANCA Pending Atypical p-ANCA Pending Tiss Transglutamin IgG Tiss Transglutamin IgA S.cerevisiae IgG Ab Pending S. cerevisiae IgG/IgA Pending 12/15/16 05:00 WBC Hgb Hct Plt Count C-Reactive Protein p-ANCA Atypical p-ANCA Tiss Transglutamin IgG Pending Tiss Transglutamin IgA Pending S.cerevisiae IgG Ab S. cerevisiae IgG/IgA Constitutional: Calm ...Auscultate: Yes: Hyperactive Bowel Sounds ...Palpate: Yes: Soft, Other (nontender) Labs: CBC, BMP 12/15/16 05:00 12/15/16 05:00 INR, PTT INR 1.26 (0.82-1.09) H 12/14/16 07:50 Problem List - Problems (1) Enteritis presumed infectious Assessment/Plan: The enteritis appears to be resolved but will proceed with colonoscopy tomorrow to exclude Crohn's Disease given the abnormality noted on CT in the terminal ileum and to exclude a colon neoplasm or colitis as the cause of GI bleeding Code(s): A09 - INFECTIOUS GASTROENTERITIS AND COLITIS, UNSPECIFIED
[2016-12-15] MEDS ORDERED: BISACODYL 5 MG TABLET.DR (FP) PO ONE (18:43)
[2016-12-16] MEDS: ATORVASTATIN CA 10 MG TABLET (FP) PO SCH (00:12)
[2016-12-16] MEDS: dilTIAZem HCL 30 MG TABLET (FP) PO SCH ×2 (05:33→15:01)
[2016-12-16 06:06] LABS: SERUM IRON 43 ug/dL (38-169); TOTAL IRON BINDING CAPACITY 324 ug/dL (250-450); UIBC 281 ug/dL (111-343)
[2016-12-16] MEDS ORDERED: PROPOFOL 20 ML ONE (12:14)
--- NOTE | 2016-12-16 12:18 | EKG ---
Test Reason : Blood Pressure : / mmHG Vent. Rate : 071 BPM Atrial Rate : 105 BPM P-R Int : 000 ms QRS Dur : 086 ms QT Int : 364 ms P-R-T Axes : 000 077 060 degrees QTc Int : 395 ms ATRIAL FIBRILLATION ABNORMAL ECG WHEN COMPARED WITH ECG OF 10-DEC-2016 17:55, NONSPECIFIC T WAVE ABNORMALITY NO LONGER EVIDENT IN INFERIOR LEADS NONSPECIFIC T WAVE ABNORMALITY NO LONGER EVIDENT IN LATERAL LEADS QT HAS SHORTENED Confirmed by HILARIO PRINCE, GINA ([id number]) on 12/16/2016 12:18:40 PM Referred By: Confirmed By:GINA RICH MD
--- NOTE | 2016-12-16 13:04 | PN ---
Progress Note (short form) - Note Progress Note: GI Procedure NOte: Please see scanned colonoscopy report. No coltis or Crohn's ileitis found. Two tiny sigmoid polyps removed. Will advance diet. If tolerated I have no GI objections to discharge . He will followup in our office. Problem List - Problems (1) Enteritis presumed infectious Code(s): A09 - INFECTIOUS GASTROENTERITIS AND COLITIS, UNSPECIFIED
[2016-12-16 13:39] VITALS: TEMP 98.3
[2016-12-16] MEDS ORDERED: PT OWN MED DRAWER 7, Y5N ONE ×2 (14:58→19:13)
[2016-12-16] MEDS: PANTOPRAZOLE 40 MG TABLET (FP) PO SCH (14:59)
[2016-12-16] MEDS: DIGOXIN 0.25 MG TABLET (FP) PO SCH (15:00)
[2016-12-16] MEDS: ATENOLOL 50 MG TABLET (FP) PO SCH (15:01)
[2016-12-16] MEDS: FENOFIBRIC ACID 45 MG CAP PO SCH (15:02)
[2016-12-16] MEDS: CHLORTHALIDONE 25 MG TABLET PO SCH (15:02)
[2016-12-16] MEDS: POTASSIUM CHLORIDE TABS 20 MEQ TABLET.ER (FP) PO SCH (15:15)
[2016-12-16 18:26] VITALS: BP 105/74; PULSE 89
--- NOTE | 2016-12-16 18:58 | DS ---
Physical Examination Vital Signs: Vital Signs Temperature 98.3 F 12/16/16 14:00 Pulse Rate 89 12/16/16 18:00 Respiratory Rate 17 12/16/16 18:00 Blood Pressure 105/74 12/16/16 18:00 O2 Sat by Pulse Oximetry (%) 100 12/16/16 13:23 Constitutional: Yes: Well Nourished HENT: Yes: Atraumatic Neck: Yes: WNL Cardiovascular: Yes: WNL, Pulse Irregular Respiratory: Yes: WNL Gastrointestinal: Yes: WNL Musculoskeletal: Yes: WNL Extremities: Yes: WNL Neurological: Yes: WNL ...Motor Strength: WNL Psychiatric: Yes: WNL Labs: CBC, BMP 12/15/16 05:00 12/15/16 05:00 Discharge Summary Reason For Visit: HEMORRHAGE WHILE ON WARFARIN THERAPY Current Active Problems ANDREY (acute kidney injury) (Acute) resolved No Bleeding on Coumadin (Acute) Diarrhea (Acute) resolved Enteritis presumed infectious (Acute) resolved GI bleed (Acute) resolved Condition: Guarded - Instructions Referrals: Renan Abbott MD [Primary Care Provider] - - Home Medications Comprehensive Discharge Medication List: Ambulatory Orders Atenolol [Tenormin -] 100 mg PO DAILY 12/11/16 Chlorthalidone [Hygroton -] 25 mg PO DAILY 12/11/16 Diltiazem [Cardizem -] 30 mg PO BID 12/11/16 Fenofibrate 60 mg PO DAILY 12/11/16 Simvastatin 20 mg PO DAILY 12/11/16 Warfarin Sodium [Coumadin] 5 mg PO DAILY 12/11/16
--- NOTE | 2016-12-16 19:03 | CONSULT ---
Consult - text type - Consultation Consultation Note: Internal Medicine symptoms have subsided PE: vitals stable HR 85 /minute cardiac exam normal lungs clear abdomen soft no leg edema Impression: afib RVR; controlled abdominal fluid resolved; intestinal thickening present, no laparoscopy H/H 11/11 INR 1.26 renal function almost normal Patient is cleared from medical and cardiac standpoint to undergo colonoscopy/ enteroscopy EGD mild gastritis, hiatal hernia Colonoscopy normal, 2 sigmoid polyps removed Blood tests unremarkable, INR normal Rec: Discharge GI follow-up My office tomorrow to evaluate alternative to warfarin, if insurance covers continue all other meds, except coumadin atenolol 50 mg daily cardizem 30 mg TID chlorthalidone 25 mg daily Kdur 20 meq daily Digoxin 0.25 mg daily atorvasatin 10 mg fenofibrate 45 mg daily pantoprazole 40 mg daily A/C to be decided tomorrow
[2016-12-17 00:06] LABS: ALBUMIN 3.1 g/dL (2.9-4.4); GLOBULIN, TOTAL 3.2 g/dL (2.2-3.9); M-SPIKE Not Observed g/dL (Not Observed); TOTAL PROTEIN 6.3 g/dL (6.0-8.5)
--- NOTE | 2016-12-17 15:10 | PATH ---
Surgical Pathology Report Patient Name: NICOLASA SILVERIO [facility]. Rec. #: [id number] /Age/Gender: 1950 (Age: 66) / M Account: [id number] Location: EMERGENCY ROOM Taken: 12/16/2016 Received: 12/16/2016 Reported: 12/17/2016 Physicians: Tomasz Morrison M.D. Specimen(s) Received A: BX CECUM B: BX ILEUM C: BX RIGHT COLON D: BX TRANSVERSE COLON E: BX SIGMOID F: POLYP SIGMOID G: BX RECTUM Clinical History Anemia, diarrhea, weight loss, abnormal CT scan, family history of adenoma Sigmoid polyp Final Diagnosis A. CECUM, BIOPSY: COLONIC MUCOSA WITH INCREASED INTRAEPITHELIAL LYMPHOCYTES. B. ILEUM, BIOPSY: SMALL BOWEL MUCOSA WITH INCREASED INTRAEPITHELIAL LYMPHOCYTES. C. COLON, RIGHT, BIOPSY: COLONIC MUCOSA WITH INCREASED INTRAEPITHELIAL LYMPHOCYTES. D. TRANSVERSE COLON, BIOPSY: COLONIC MUCOSA WITH INCREASED INTRAEPITHELIAL LYMPHOCYTES. E. SIGMOID COLON, BIOPSY: COLONIC MUCOSA WITH INCREASED INTRAEPITHELIAL LYMPHOCYTES. F. SIGMOID COLON, POLYP, BIOPSY: COLONIC MUCOSA WITH INCREASED INTRAEPITHELIAL LYMPHOCYTES. G. RECTUM, BIOPSY: COLONIC MUCOSA WITH INCREASED INTRAEPITHELIAL LYMPHOCYTES AND FOCAL ACUTE INFLAMMATION. Comment: No granuloma or chronic changes such as crypt distortion identified. 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 Suggest clinical/radiologic correlation. Electronically Signed Sherlyn Waldron M.D. Gross Description A. Received in formalin, labeled "biopsy cecum" are 2 buenrostro, irregular portions of soft tissue measuring 0.2 and 0.4 cm. in greatest dimension. The specimens are submitted in toto in one cassette. B. Received in formalin, labeled "biopsy ileum" are 2 buenrostro, irregular portions of soft tissue measuring 0.2 and 0.4 cm. in greatest dimension. The specimens are submitted in toto in one cassette. C. Received in formalin, labeled "biopsy right colon" are 3 buenrostro, irregular portions of soft tissue ranging from 0.1-0.3 cm. in greatest dimension. The specimens are submitted in toto in one cassette. D. Received in formalin, labeled "biopsy transverse" are 2 buenrostro, irregular portions of soft tissue measuring 0.4 and 0.5 cm. in greatest dimension. The specimens are submitted in toto in one cassette. E. Received in formalin, labeled "biopsy sigmoid " are 3 buenrostro, irregular portions of soft tissue ranging from 0.1-0.4 cm. in greatest dimension. The specimens are submitted in toto in one cassette. F. Received in formalin, labeled "biopsy sigmoid polyp" are 2 buenrostro, irregular portions of soft tissue measuring 0.1 and 0.2 cm. in greatest dimension. The specimens are submitted in toto in one cassette. G. Received in formalin, labeled "biopsy rectum" are 2 buenrostro, irregular portions of soft tissue averaging 0.3 cm. in greatest dimension. The specimens are submitted in toto in one cassette. 12/16/201612/16/2016
[2016-12-17 16:26] LABS: C-ANCA <1:20 titer (Neg:<1:20); MYELOPEROXIDASE ANTIBODY <9.0 U/mL (0.0-9.0); P-ANCA <1:20 titer (Neg:<1:20); PROTEINASE-3 ANTIBODY <3.5 U/mL (0.0-3.5)
== END 2016-12-16 19:45 | disposition home or self-care (01) | DRG 813 ==
LOC: JER 13:31 → JERBED 15:41 → J2W 12-11 10:28
PROC: 30233K1 Transfusion of Nonautologous Frozen Plasma into Peripheral Vein, Percutaneous Approach (ICD-10-PCS; 2016-12-10)
PROC: 0DD98ZX Extraction of Duodenum, Via Natural or Artificial Opening Endoscopic, Diagnostic (ICD-10-PCS; 2016-12-14)
PROC: 0DD68ZX Extraction of Stomach, Via Natural or Artificial Opening Endoscopic, Diagnostic (ICD-10-PCS; 2016-12-14)
PROC: 0DDN8ZX Extraction of Sigmoid Colon, Via Natural or Artificial Opening Endoscopic, Diagnostic (ICD-10-PCS; 2016-12-16)
PROC: 0DBN8ZX Excision of Sigmoid Colon, Via Natural or Artificial Opening Endoscopic, Diagnostic (ICD-10-PCS; principal; 2016-12-16 11:30)
DX: D68.32 Hemorrhagic disorder due to extrinsic circulating anticoagulants (principal); N17.9 Acute kidney failure, unspecified; A09 Infectious gastroenteritis and colitis, unspecified; K59.09 Other constipation; I48.2 Chronic atrial fibrillation; T45.515A Adverse effect of anticoagulants, initial encounter; R19.7 Diarrhea, unspecified; I10 Essential (primary) hypertension; E78.5 Hyperlipidemia, unspecified; F17.210 Nicotine dependence, cigarettes, uncomplicated; Z89.021 Acquired absence of right finger(s); R63.4 Abnormal weight loss; Z68.21 Body mass index [BMI] 21.0-21.9, adult; K63.5 Polyp of colon; K29.60 Other gastritis without bleeding; K44.9 Diaphragmatic hernia without obstruction or gangrene; K64.8 Other hemorrhoids; D64.9 Anemia, unspecified
CPT/HCPCS: 36415; 36430; 71010-TC; 74176-TC; 74177-TC; 80048; 80053; 82272; 82550; 82728; 83516; 83520; 83540; 83550; 83690; 83735; 83880; 84100; 84155; 84165; 84484; 85025; 85027; 85044; 85610; 85730; 86140; 86256; 86671; 86850; 86900; 86901; 87045; 87046; 88305-TC; 90670; 93005; 93010; 99284-25; P9017